=== PATIENT | male | born 1990 | race Hispanic/Latino ===

== ENCOUNTER 2018-04-17 11:37 | Emergency (ER) | payer SELFPAY | END 2018-04-17 13:21 | disposition home or self-care (01) | LOC: ERS 11:37 | DX: B36.0 Pityriasis versicolor (principal); F41.9 Anxiety disorder, unspecified | CPT/HCPCS: 99281 ==

== ENCOUNTER 2018-04-17 22:36 | Inpatient (IN) | payer SELFPAY ==
[2018-04-17 23:01] LABS: Base Excess (BEa) -3.8 mEq/L (0 (+/-) 2.5); O2 Tension (PaO2) 84.9 mmHg (80.0-100.0); pH, Arterial 7.43 (7.35-7.45)
[2018-04-17 23:02] LABS: Analyzer IN Cardio ER; Calcium, Ionized 1.2 mmol/L (1.12-1.30); Hematocrit-ABG 42.3 % (42.0-52.0); Puncture Site RRA
[2018-04-17 23:12] LABS: #Basophils 0.1 thou/uL (0.0-0.2); #Eosinphils 0.2 thou/uL (0.0-0.7); #Lymphocytes 3.1 thou/uL (1.20-3.40); #Monocytes 0.5 thou/uL (0.11-0.59); #Neutrophils 3.7 thou/uL (1.40-6.50); %Basophils 0.7 % (0.0-1.0); %Eosinophils 2.9 % (0.0-10.0); %Lymphocytes 41.6 % (21.0-51.0); %Monocytes 6.2 % (0.0-10.0); %Neutrophils 48.7 % (42.0-75.0); Hemoglobin 14.8 g/dL (14.0-18.0); Mean Corpuscular HGB CONC 34.6 g/dL (32.0-36.0); Mean Corpuscular Hemoglobin 31.3 pg (27.0-31.0); Mean Corpuscular Volume 90.4 fl (80.0-94.0); Mean Platelet Volume 6.3 fL (7.4-10.4); Platelet Count 238 thou/uL (130-400); RBC Distribution Width 11.9 % (11.5-14.5); Red Blood Cell (RBC) Count 4.74 mill/uL (4.70-6.10); White Blood Cell (WBC) Count 7.5 thou/uL (4.8-10.8)
[2018-04-17 23:22] LABS: INR-International Normal Ratio 1.1; PTT 31.3 SEC (22.9-36.1); Prothrombin Time 14.4 SEC (12.0-14.7)
--- NOTE | 2018-04-17 23:30 | RAD ---
PORTABLE CHEST: Date: 04/17/18 PROVIDED CLINICAL HISTORY: Altered mental status. FINDINGS: Comparison with 10/03/17. Cardiac and mediastinal silhouette is within normal limits. Lungs appear clear. There is no pleural f luid or pneumothorax evident. IMPRESSION: No evidence for an acute cardiopulmonary process. POS: [facility]
[2018-04-17 23:34] LABS: ALT (SGPT) 11 U/L (8-55); AST (SGOT) 15 U/L (5-34); Albumin 3.9 g/dL (3.5-5.0); Alkaline Phosphatase 74 U/L (40-150); Anion Gap 13 mmol/L (10-20); BUN (Urea Nitrogen) 10 mg/dL (8.9-20.6); Bilirubin, Total 0.3 mg/dL (0.2-1.2); CK (CPK) 92 U/L (30-200); Calc. Creatinine Clearance 0 mL/min (70-130); Calcium 8.5 mg/dL (7.8-10.44); Carbon Dioxide 20 mmol/L (22-29); Chloride 111 mmol/L (98-107); Estimated GFR-MDRD Greater than 90; Globulin 2.7 g/dL (2.4-3.5); Glucose 93 mg/dL (70-105); Lipase 26 U/L (8-78); Magnesium 2.1 mg/dL (1.6-2.6); Potassium 3.2 mmol/L (3.5-5.1); Protein, Total 6.6 g/dL (6.0-8.3); Sodium 141 mmol/L (136-145)
[2018-04-17 23:35] LABS: Acetaminophen Less than 6.0 mcg/mL (10.0-30.0); Alcohol 23 mg/dL (Less than 10); Salicylate 20.1 mg/dL (15.0-30.0)
[2018-04-17 23:39] LABS: CKMB 1.3 ng/mL (0-6.6); Troponin I Less than 0.010 ng/mL (< 0.028)
[2018-04-18 00:03] LABS: Bilirubin Negative (Negative); Blood, Urine Negative (Negative); Clarity CLEAR (Clear); Glucose, Urine (Dipstick) Negative (Negative); Leukocyte Trace (Negative); Nitrite Negative (Negative); Protein, Urine (Dipstick) Negative (Neg-Trace); Specific Gravity, Urine 1.005 (1.002-1.036); Urobilinogen 0.2 mg/dL (0.2-1.0)
[2018-04-18 00:05] LABS: Bacteria/HPF None Seen HPF (None Seen); Hyaline Casts/LPF 0-3 HYALINE CAST LPF (0-3 Hyaline); RBC/HPF None Seen HPF (0-3); Squamous Epithelial None Seen HPF (0-3); WBC/HPF 0-3 HPF (0-3)
[2018-04-18 00:11] LABS: Amphetamine Not Detected (NotDetected); Barbiturates Screen Not Detected (NotDetected); Benzodiazepine Screen Not Detected (NotDetected); Cocaine Metabolite Screen Not Detected (NotDetected); Medtox Control Line Valid? VALID (VALID); Medtox Reader # READER 1; Methadone Not Detected (NotDetected); Methamphetamine Not Detected (NotDetected); Opiate Screen Not Detected (NotDetected); Oxycodone Screen Not Detected (NotDetected); Phencyclidine (PCP) Not Detected (NotDetected); THC/Cannabinoid Screen Not Detected (NotDetected); Tricyclic Screen Not Detected (NotDetected)
[2018-04-18] MEDS ORDERED: Ondansetron HCl/PF 4 MG/2 ML Vial IVP PRN (02:05)
[2018-04-18 02:53] LABS: #Basophils 0.1 thou/uL (0.0-0.2); #Eosinphils 0.2 thou/uL (0.0-0.7); #Lymphocytes 2.7 thou/uL (1.20-3.40); #Monocytes 0.5 thou/uL (0.11-0.59); %Basophils 0.7 % (0.0-1.0); %Eosinophils 1.9 % (0.0-10.0); %Lymphocytes 32.4 % (21.0-51.0); %Neutrophils 59.1 % (42.0-75.0); Mean Corpuscular HGB CONC 34.7 g/dL (32.0-36.0); Mean Corpuscular Hemoglobin 31.4 pg (27.0-31.0); Mean Corpuscular Volume 90.5 fl (80.0-94.0); Mean Platelet Volume 6.3 fL (7.4-10.4); Platelet Count 252 thou/uL (130-400); RBC Distribution Width 11.8 % (11.5-14.5); Red Blood Cell (RBC) Count 4.78 mill/uL (4.70-6.10); White Blood Cell (WBC) Count 8.4 thou/uL (4.8-10.8)
[2018-04-18 03:06] LABS: Lactic Acid 0.6 mmol/L (0.5-2.2)
[2018-04-18 03:21] LABS: ALT (SGPT) 10 U/L (8-55); AST (SGOT) 14 U/L (5-34); Albumin 3.8 g/dL (3.5-5.0); Alkaline Phosphatase 69 U/L (40-150); Anion Gap 10 mmol/L (10-20); BUN (Urea Nitrogen) 10 mg/dL (8.9-20.6); Bilirubin, Total 0.2 mg/dL (0.2-1.2); Calc. Creatinine Clearance 0 mL/min (70-130); Calcium 8.2 mg/dL (7.8-10.44); Carbon Dioxide 26 mmol/L (22-29); Chloride 109 mmol/L (98-107); Estimated GFR-MDRD Greater than 90; Globulin 2.5 g/dL (2.4-3.5); Glucose 108 mg/dL (70-105); Potassium 3.7 mmol/L (3.5-5.1); Protein, Total 6.3 g/dL (6.0-8.3); Sodium 141 mmol/L (136-145)
--- NOTE | 2018-04-18 05:44 | HP ---
REASON FOR ADMISSION: Aspirin overdose, alcohol intoxication. HISTORY OF PRESENT ILLNESS: The patient states that he had an argument with his ex-girlfriend over his children and got upset. He started taking aspirin from a full bottle with him drinking 8 cans of beer. He states he emptied the whole bottle chew them all up. The patient has epigastric pain right now, so he feels nauseous and has not really vomited anything so far. He did this to end his life. No complaints of palpitations, PND, or orthopnea. PAST MEDICAL AND SURGICAL HISTORY: Tinea versicolor. CURRENT MEDICATIONS: None. ALLERGIES: No known drug allergies. PERSONAL HISTORY: Usually drinks on social occasions, but drank 8 beers to take his full bottle of aspirin with suicidal intention today. Does not smoke. Denies substance abuse. He lives alone, has 3 boys, 7 years, 4 years, 2 years. He is from his live-in girlfriend. FAMILY HISTORY: Mother has history of coronary artery disease and lives in [place]. Father is living with him and is healthy. REVIEW OF SYSTEMS: The following complete review of systems was negative, unless otherwise mentioned in the HPI or below: Constitutional: Weight loss or gain, ability to conduct usual activities. Skin: Rash, itching. Eyes: Double vision, pain. ENT/Mouth: Nose bleeding, neck stiffness, pain, tenderness. Cardiovascular: Palpitations, dyspnea on exertion, orthopnea. Respiratory: Shortness of breath, wheezing, cough, hemoptysis, fever or night sweats. Gastrointestinal: Poor appetite, abdominal pain, heartburn, nausea, vomiting, constipation, or diarrhea. Genitourinary: Urgency, frequency, dysuria, nocturia. Musculoskeletal: Pain, swelling. Neurologic/Psychiatric: Anxiety, depression. Allergy/Immunologic: Skin rash, bleeding tendency. PHYSICAL EXAMINATION: GENERAL: The patient is a 27-year-old male who is in mild distress from epigastric pain. VITAL SIGNS: Blood pressure 124/70, pulse 56 per minute, respiratory rate 20 per minute, temperature 97.6 degrees Fahrenheit, saturating 98% on room air. NECK: Supple, no elevated JVD. HEENT: Eyes: Extraocular muscles intact. Pupils reacting to light. Oral cavity: Mucous membranes are dry. No exudates or congestion. CARDIOVASCULAR SYSTEM: S1, S2 heard. Regular rhythm. RESPIRATORY SYSTEM: Air entry 1+ bilateral. No rales or rhonchi. ABDOMEN: Soft, bowel sounds heard. Mild tenderness in the epigastric area. No rigidity or guarding. Bowel sounds are heard. EXTREMITIES: No peripheral edema or calf tenderness. VASCULAR SYSTEM: Peripheral pulses 2+ bilateral, no ischemic ulcerations or gangrene. CENTRAL NERVOUS SYSTEM: No gross focal deficits seen. The patient is awake and oriented well. PSYCHIATRIC SYSTEM: The patient is a bit anxious, otherwise no hallucinations or delusions. LABORATORY DATA AND X-RAY FINDINGS: Salicylic acid level was 20.1. Plasma alcohol level is 23. Acetaminophen level is less than 6. Urine drug screen is negative. Chest x-ray, no acute cardiopulmonary abnormalities. TSH 3.0, lipase 26. Lactic acid 2.5, serum bicarbonate 20, potassium 3.2, BUN 10, creatinine 0.7, glucose is 93. Liver enzymes are all within normal limits. First set of cardiac enzymes are negative. Albumin is 3.9. Blood gas done shows a pH of 7.43, pCO2 of 29, pO2 84, bicarb on the blood gas is 19. PT, INR , PTT within normal limits. White count of 7, H&H 14 and 42, platelet count 238 , MCV is 90 with 48% neutrophils. EKG done shows sinus bradycardia at 51 beats per minute, no gross ST-T wave changes. CLINICAL IMPRESSION AND PLAN: The patient will be admitted to ICU for overdose on aspirin with suicidal intention along with alcohol intoxication. Dr. Gtz had called [facility] and was asked to place him on bicarbonate drip. No activated charcoal or lavage was done. We will obtain salicylate levels every 6 hours. We will closely monitor his serum bicarbonate and renal function as well. We will continue his bicarbonate drip. We will closely monitor him for possible acidosis. We will check liver function panel in the morning. He will be on Protonix 40 mg IV q.12 hourly as well. MTDD
[2018-04-18 06:16] LABS: ALT (SGPT) 11 U/L (8-55); AST (SGOT) 15 U/L (5-34); Albumin 3.7 g/dL (3.5-5.0); Alkaline Phosphatase 68 U/L (40-150); Anion Gap 9 mmol/L (10-20); BUN (Urea Nitrogen) 10 mg/dL (8.9-20.6); Bilirubin, Total 0.2 mg/dL (0.2-1.2); Calc. Creatinine Clearance 0 mL/min (70-130); Carbon Dioxide 26 mmol/L (22-29); Chloride 109 mmol/L (98-107); Estimated GFR-MDRD Greater than 90; Globulin 2.5 g/dL (2.4-3.5); Glucose 103 mg/dL (70-105); Potassium 3.7 mmol/L (3.5-5.1); Protein, Total 6.2 g/dL (6.0-8.3); Sodium 140 mmol/L (136-145)
[2018-04-18 06:18] LABS: Salicylate 31.2 mg/dL (15.0-30.0)
[2018-04-18 08:22] LABS: Bilirubin Negative (Negative); Blood, Urine Negative (Negative); Clarity CLEAR (Clear); Glucose, Urine (Dipstick) Negative (Negative); Leukocyte Negative (Negative); Nitrite Negative (Negative); Protein, Urine (Dipstick) Negative (Neg-Trace); Specific Gravity, Urine 1.011 (1.002-1.036); Urobilinogen 0.2 mg/dL (0.2-1.0); pH, Urine 7.5 (5.0-9.0)
[2018-04-18] MEDS ORDERED: Enoxaparin Sodium 40 MG/0.4 ML SYRINGE SC SCH (09:00)
[2018-04-18] MEDS ORDERED: Pantoprazole 40 MG VIAL ONE (11:41)
[2018-04-18] MEDS: SODIUM BICARBONATE IV SCH ×3 (15:59→21:21)
[2018-04-18] MEDS: [UNRECOGNIZED DRUG - OTHER] IV SCH ×3 (15:59→21:21)
[2018-04-18] MEDS: POTASSIUM CHLORIDE IV SCH ×3 (15:59→21:21)
[2018-04-18] MEDS: ADMIXTURE FEE IV SCH ×3 (15:59→21:21)
[2018-04-18] MEDS: Sodium Bicarbonate 150 MEQ in Dextrose 5% w/ 20 mEq KCl 1,000 ML IVP SCH ×2 (15:59→21:16)
[2018-04-18 17:58] LABS: ALT (SGPT) 16 U/L (8-55); AST (SGOT) 14 U/L (5-34); Albumin 3.5 g/dL (3.5-5.0); Alkaline Phosphatase 61 U/L (40-150); Anion Gap 8 mmol/L (10-20); BUN (Urea Nitrogen) 10 mg/dL (8.9-20.6); Bilirubin, Total 0.4 mg/dL (0.2-1.2); Calc. Creatinine Clearance 0 mL/min (70-130); Calcium 8.1 mg/dL (7.8-10.44); Carbon Dioxide 27 mmol/L (22-29); Chloride 107 mmol/L (98-107); Estimated GFR-MDRD 87; Globulin 2.4 g/dL (2.4-3.5); Glucose 100 mg/dL (70-105); Potassium 3.2 mmol/L (3.5-5.1); Protein, Total 5.9 g/dL (6.0-8.3); Sodium 139 mmol/L (136-145)
[2018-04-18 18:08] VITALS: BMI 24.8
[2018-04-18] MEDS: Pantoprazole 40 MG VIAL IVP SCH ×2 (18:19→21:21)
[2018-04-18 21:17] LABS: ALT (SGPT) 16 U/L (8-55); AST (SGOT) 13 U/L (5-34); Albumin 3.4 g/dL (3.5-5.0); Alkaline Phosphatase 58 U/L (40-150); Anion Gap 9 mmol/L (10-20); BUN (Urea Nitrogen) 11 mg/dL (8.9-20.6); Bilirubin, Total 0.5 mg/dL (0.2-1.2); Calc. Creatinine Clearance 92 mL/min (70-130); Calcium 8.3 mg/dL (7.8-10.44); Carbon Dioxide 26 mmol/L (22-29); Chloride 108 mmol/L (98-107); Estimated GFR-MDRD 74; Globulin 2.3 g/dL (2.4-3.5); Glucose 113 mg/dL (70-105); Potassium 3.7 mmol/L (3.5-5.1); Protein, Total 5.7 g/dL (6.0-8.3); Salicylate 10.7 mg/dL (15.0-30.0); Sodium 139 mmol/L (136-145)
[2018-04-18 22:12] LABS: Chlamydia by PCR DETECTED (NotDetected); GC by PCR Not Detected (NotDetected)
[2018-04-19 01:15] LABS: ALT (SGPT) 15 U/L (8-55); AST (SGOT) 12 U/L (5-34); Albumin 3.3 g/dL (3.5-5.0); Alkaline Phosphatase 56 U/L (40-150); Anion Gap 8 mmol/L (10-20); BUN (Urea Nitrogen) 12 mg/dL (8.9-20.6); Bilirubin, Total 0.6 mg/dL (0.2-1.2); Calc. Creatinine Clearance 94 mL/min (70-130); Calcium 8.1 mg/dL (7.8-10.44); Carbon Dioxide 28 mmol/L (22-29); Chloride 106 mmol/L (98-107); Estimated GFR-MDRD 76; Globulin 2.2 g/dL (2.4-3.5); Glucose 114 mg/dL (70-105); Potassium 3.3 mmol/L (3.5-5.1); Protein, Total 5.5 g/dL (6.0-8.3); Sodium 139 mmol/L (136-145)
[2018-04-19] MEDS: [UNRECOGNIZED DRUG - OTHER] IV SCH ×3 (03:31→10:09)
[2018-04-19] MEDS: POTASSIUM CHLORIDE IV SCH ×3 (03:31→10:09)
[2018-04-19] MEDS: SODIUM BICARBONATE IV SCH ×3 (03:31→10:09)
[2018-04-19] MEDS: ADMIXTURE FEE IV SCH ×3 (03:31→10:09)
[2018-04-19] MEDS: Pantoprazole 40 MG VIAL IVP SCH ×2 (08:23→20:52)
[2018-04-19] MEDS ORDERED: Potassium Chloride 20 MEQ TAB PO SCH (10:00)
[2018-04-19] MEDS ORDERED: Azithromycin 250 MG TAB PO SCH (10:30)
[2018-04-19 11:18] LABS: HIV (1/2) Antibody/Antigen Non-Reactive (NonReactive); HIV 1/2 INDEX 0.14 S/CO (<1.00)
--- NOTE | 2018-04-19 16:02 | PDOC.PN ---
- Subjective Encounter Start Date: 04/19/18 Encounter Start Time: 11:40 Pt seen for followup re: aspirin overdose. Denies chest pain, shortness of breath, fevers or chills. No nausea or vomiting. - Objective Resuscitation Status: Resuscitation Status FULL:Full Resuscitation Vital Signs & Weight: Vital Signs (12 hours) Temp Pulse Resp BP Pulse Ox 04/19/18 15:47 97.4 F L 58 L 16 111/56 L 98 04/19/18 11:23 98.3 F 51 L 15 100/61 99 04/19/18 08:18 98.0 F 62 17 111/62 100 Weight Weight 154 lb I&O: 04/18/18 04/19/18 04/20/18 06:59 06:59 06:59 Intake Total 1271 Output Total 680 Balance 591 Result Diagrams: 04/18/18 02:43 04/19/18 00:46 Phys Exam - Physical Examination Constitutional: NAD HEENT: moist MMs, sclera anicteric, oral pharynx no lesions, 2+ tonsils Neck: no nodes, no JVD, supple, full ROM Respiratory: no wheezing, no rales, no rhonchi, clear to auscultation bilateral Cardiovascular: RRR, no rub S1, S2 Gastrointestinal: soft, non-tender, no distention, positive bowel sounds Neurological: moves all 4 limbs Psychiatric: normal affect, A&O x 3 Deviation from normal: tinea versicolor Dx/Plan (1) Intentional aspirin overdose Code(s): T39.012A - POISONING BY ASPIRIN, INTENTIONAL SELF-HARM, INIT ENCNTR Status: Acute Comment: Poison control recommendations carried out, aspirin level is low now. (2) Chlamydia infection Code(s): A74.9 - CHLAMYDIAL INFECTION, UNSPECIFIED Status: Acute Comment: Azithromycin 1 gm PO x 1, pt has been counseled to abstain from sex for at least 7 days. Also counseled re; safe sex practices. HIV screen negative. (3) Hypokalemia Code(s): E87.6 - HYPOKALEMIA Status: Acute Comment: replace potassium (4) Tinea versicolor Status: Chronic - Plan * . Further disposition depending on [facility] eval. Review of Systems - Review of Systems Constitutional: negative: fever, chills, sweats, weakness, malaise Respiratory: negative: Cough, Shortness of Breath, SOB with Excertion, Pleuritic Pain, Wheezing Cardiovascular: negative: chest pain, palpitations, orthopnea, paroxysmal nocturnal dyspnea, edema, light headedness Gastrointestinal: negative: Nausea, Vomiting, Abdominal Pain, Diarrhea, Constipation, Melena, Hematochezia Genitourinary: negative: Dysuria, Frequency, Incontinence, Hematuria, Retention Skin: negative: Rash, Lesions, Eddie, Bruising - Medications/Allergies Allergies/Adverse Reactions: Allergies Allergy/AdvReac Type Severity Reaction Status Date / Time No Known Allergies Allergy Unverified 04/17/18 23:09 Medications: Current Medications Pantoprazole Sodium (Protonix) 40 mg IVP Q12HR [facility] Last Admin: 04/19/18 08:23 Dose: 40 mg Sodium Chloride (Flush - Normal Saline) 10 ml IVF Q12HR [facility] Last Admin: 04/19/18 08:23 Dose: 10 ml Sodium Chloride (Flush - Normal Saline) 10 ml IVF PRN PRN PRN Reason: Saline Flush
--- NOTE | 2018-04-20 01:03 | DIS ---
DATE OF ADMISSION: 04/18/2018 DATE OF DISCHARGE: 04/19/2018 PRIMARY CARE PROVIDER: None. DISCHARGE DIAGNOSES: 1. Intentional aspirin overdose. 2. Chlamydia genital tract infection. 3. Hypokalemia. CONDITION OF THE PATIENT ON THE DAY OF DISCHARGE: Stable. I assessed Mr. Sparrow on the day of disch argcecily. Please refer to my daily hospitalist progress note for further details regarding this [id number] en counter. DISCHARGE MEDICATIONS: None. HOSPITAL COURSE: Mr. Sparrow is a pleasant 27-year-old gentleman who was admitted to [facility] on 04/18/2018 for intentional aspirin overdose. He was treated with a bicarbonate drip. Aspirin levels initially trended up, subsequently trended down into the normal range. He was also hypokalemic and received potassium supplement. Emergency room physician sent out chlamydia and gonococcal serology. The patient was positive for ch lamydia DNA. Neisseria gonorrhoeae DNA was not detected. The patient was provided education regardi ng sexually transmitted infections. He received azithromycin 1 g, one-time dose. I also checked his HIV 1 and 2 antigen and antibody. The test was nonreactive. He has been advised to abstain from sex for at least 7 days and to follow up with his primary care pr ovider for further management. At the time of this dictation, [facility] is evaluating the patient as to discharge disposition. DISCHARGE DESTINATION: Likely home. TOTAL AMOUNT OF TIME SPENT COORDINATING THIS DISCHARGE: 33 minutes.
[2018-04-20] MEDS: Pantoprazole 40 MG VIAL IVP SCH (08:23)
[2018-04-20 11:21] LABS: Syphilis Antibody Nonreactive (Nonreactive); Syphilis Antibody Index 0.05 S/CO (<1.00 Non-Reactive)
[2018-04-20 15:15] VITALS: BP 117/78; TEMP 98.2
--- NOTE | 2018-04-21 01:03 | DIS ---
PRIMARY CARE PROVIDER: None. DATE OF ADMISSION: 04/18/2018 DATE OF DISCHARGE: 04/20/2018 DISCHARGE DIAGNOSES: 1. Intentional aspirin overdose. 2. Chlamydia genital tract infection. 3. Hypokalemia. CONDITION OF PATIENT ON THE DAY OF DISCHARGE: Stable. I assessed Mr. Sparrow on the day of discharge . He denies any chest pain or shortness of breath. Vital signs are stable. S1 and S2 are heard, re gular. Lungs are clear to auscultation bilaterally. DISCHARGE MEDICATIONS: None. HOSPITAL COURSE: Mr. Sparrow is a pleasant 27-year-old gentleman, who was admitted to [facility] on 04/18/2018 for intentional aspirin overdose. Aspirin levels initially trended up, subsequently normalized after treatment with bicarbonate drip. He received potassium supplements for hypokalemia. He had positive chlamydia serology, negative gonococcal serology, negative syphilis serology and nega tive HIV 1 and 2 serology. He received azithromycin 1 gram, one-time dose. He has been advised to a bstain from sex for 1 week. He has also been advised to notify his sexual partner regarding his chla mydia positive test. [facility] evaluated the patient after he was medically cleared. He has been cleared to go home. DISCHARGE DESTINATION: Home. TOTAL AMOUNT OF TIME SPENT COORDINATING THIS DISCHARGE: Thirty three minutes.
== END 2018-04-20 17:37 | disposition home or self-care (01) | DRG 918 ==
LOC: ERS 22:36 → ERHOLD 04-18 01:16 → 2NO 04-18 15:22
PROVIDERS: ADMIT Internal Medicine; ATTEND Internal Medicine
DX: T39.012A Poisoning by aspirin, intentional self-harm, initial encounter (principal); Y92.099 Unspecified place in other non-institutional residence as the place of occurrence of the external cause; F10.129 Alcohol abuse with intoxication, unspecified; A74.9 Chlamydial infection, unspecified; B36.0 Pityriasis versicolor; E87.6 Hypokalemia
CPT/HCPCS: 36415; 71045; 80053; 80306; 80307; 81003; 81015; 82553; 82805; 83605; 83690; 83735; 84443; 84484; 85025; 85610; 85730; 86780; 87389; 87491; 87591; 93005; 96365; 96366; 96375; A4216; C9113; J2405; J7070

== ENCOUNTER 2018-05-31 12:07 | Emergency (ER) | payer SELFPAY ==
[2018-05-31] MEDS ORDERED: Ketorolac Tromethamine 60 MG/2 ML VIAL ONE (13:14)
[2018-05-31 13:23] LABS: #Eosinphils 0.1 thou/uL (0.0-0.7); #Lymphocytes 1.7 thou/uL (1.20-3.40); #Monocytes 0.5 thou/uL (0.11-0.59); #Neutrophils 4.7 thou/uL (1.40-6.50); %Basophils 0.2 % (0.0-1.0); %Eosinophils 0.9 % (0.0-10.0); %Lymphocytes 24.1 % (21.0-51.0); %Monocytes 6.6 % (0.0-10.0); %Neutrophils 68.2 % (42.0-75.0); Hemoglobin 15.2 g/dL (14.0-18.0); Mean Corpuscular HGB CONC 33.7 g/dL (32.0-36.0); Mean Corpuscular Hemoglobin 30.1 pg (27.0-31.0); Mean Corpuscular Volume 89.3 fL (78.0-98.0); Mean Platelet Volume 5.9 fL (7.4-10.4); Platelet Count 255 thou/uL (130-400); RBC Distribution Width 11.9 % (11.5-14.5); Red Blood Cell (RBC) Count 5.06 mill/uL (4.70-6.10); White Blood Cell (WBC) Count 6.9 thou/uL (4.8-10.8)
[2018-05-31 13:43] LABS: ALT (SGPT) 12 U/L (8-55); AST (SGOT) 14 U/L (5-34); Albumin 4.1 g/dL (3.5-5.0); Alkaline Phosphatase 68 U/L (40-150); Anion Gap 10 mmol/L (10-20); BUN (Urea Nitrogen) 11 mg/dL (8.9-20.6); Bilirubin, Total 0.8 mg/dL (0.2-1.2); Calc. Creatinine Clearance 0 mL/min (70-130); Calcium 9.3 mg/dL (7.8-10.44); Carbon Dioxide 26 mmol/L (22-29); Chloride 106 mmol/L (98-107); Estimated GFR-MDRD Greater than 90; Globulin 2.6 g/dL (2.4-3.5); Glucose 92 mg/dL (70-105); Potassium 4.1 mmol/L (3.5-5.1); Protein, Total 6.7 g/dL (6.0-8.3); Sodium 138 mmol/L (136-145)
[2018-05-31 13:46] LABS: CKMB 1.2 ng/mL (0-6.6); Troponin I Less than 0.010 ng/mL (< 0.028)
--- NOTE | 2018-05-31 14:02 | RAD ---
PA AND LATERAL VIEWS OF CHEST: Date: 05/31/18 HISTORY: Left-sided chest pain. FINDINGS: The heart size is normal. The lungs are well expanded without focal areas of consolidation, pneumotho races, chanel pulmonary edema, or pleural effusions. No acute osseous abnormalities are seen. IMPRESSION: No radiographic evidence of acute cardiopulmonary process. POS: [facility]
--- NOTE | 2018-06-03 14:24 | EKG ---
Test Reason : Blood Pressure : / mmHG Vent. Rate : 063 BPM Atrial Rate : 063 BPM P-R Int : 100 ms QRS Dur : 102 ms QT Int : 410 ms P-R-T Axes : 075 084 062 degrees QTc Int : 419 ms Sinus rhythm with short IN Otherwise normal ECG Confirmed by JUAN JOSE DUARTE ([id number]), television news video editor DEBRA CDOY ([id number]) on 06/03/2018 2:23:44 PM Referred By: Confirmed By:JUAN JOSE DUARTE
== END 2018-05-31 14:15 | disposition home or self-care (01) ==
LOC: ERS 12:07
DX: S29.011A Strain of muscle and tendon of front wall of thorax, initial encounter (principal); F41.9 Anxiety disorder, unspecified; X58.XXXA Exposure to other specified factors, initial encounter
CPT/HCPCS: 36415; 71046; 80053; 82553; 84484; 85025; 93005; 96372; J1885

== ENCOUNTER 2018-06-07 11:23 | Emergency (ER) | payer SELFPAY ==
--- NOTE | 2018-06-07 12:00 | RAD ---
PA AND LATERAL CHEST: Date: 06/07/18 INDICATION: Chest pain. COMPARISON: Prior exam dated 0 05/31/18. IMPRESSION: No acute cardiopulmonary abnormality. The examination [facility]: [facility]
[2018-06-07 12:22] LABS: #Basophils 0.1 thou/uL (0.0-0.2); #Eosinphils 0.1 thou/uL (0.0-0.7); #Lymphocytes 1.7 thou/uL (1.20-3.40); #Monocytes 0.5 thou/uL (0.11-0.59); #Neutrophils 4.4 thou/uL (1.40-6.50); %Eosinophils 1.5 % (0.0-10.0); %Lymphocytes 25.5 % (21.0-51.0); %Monocytes 6.8 % (0.0-10.0); %Neutrophils 65.2 % (42.0-75.0); Hemoglobin 14.8 g/dL (14.0-18.0); Mean Corpuscular HGB CONC 34.8 g/dL (32.0-36.0); Mean Corpuscular Hemoglobin 29.6 pg (27.0-31.0); Mean Corpuscular Volume 85.2 fL (78.0-98.0); Mean Platelet Volume 6.7 fL (7.4-10.4); Platelet Count 239 thou/uL (130-400); RBC Distribution Width 10.6 % (11.5-14.5); Red Blood Cell (RBC) Count 5.01 mill/uL (4.70-6.10); White Blood Cell (WBC) Count 6.7 thou/uL (4.8-10.8)
[2018-06-07] MEDS ORDERED: Ketorolac Tromethamine 60 MG/2 ML VIAL ONE (12:27)
[2018-06-07 12:30] LABS: ALT (SGPT) 10 U/L (8-55); AST (SGOT) 14 U/L (5-34); Albumin 4.1 g/dL (3.5-5.0); Alkaline Phosphatase 68 U/L (40-150); Anion Gap 9 mmol/L (10-20); BUN (Urea Nitrogen) 13 mg/dL (8.9-20.6); Bilirubin, Total 0.7 mg/dL (0.2-1.2); Calc. Creatinine Clearance 0 mL/min (70-130); Carbon Dioxide 26 mmol/L (22-29); Chloride 110 mmol/L (98-107); Estimated GFR-MDRD Greater than 90; Globulin 2.5 g/dL (2.4-3.5); Glucose 85 mg/dL (70-105); Potassium 4.3 mmol/L (3.5-5.1); Protein, Total 6.6 g/dL (6.0-8.3); Sodium 141 mmol/L (136-145)
[2018-06-07 12:33] LABS: CKMB 1.2 ng/mL (0-6.6); Troponin I Less than 0.010 ng/mL (< 0.028)
== END 2018-06-07 12:55 | disposition home or self-care (01) ==
LOC: SCSER 11:23
DX: R07.89 Other chest pain (principal); F41.9 Anxiety disorder, unspecified
CPT/HCPCS: 36415; 71046; 80053; 82553; 84484; 85025; 93005; 96372; J1885

== ENCOUNTER 2018-06-11 18:17 | Emergency (ER) | payer SELFPAY ==
[2018-06-11] MEDS ORDERED: Ketorolac Tromethamine 30 MG/ML VIAL ONE (20:03)
== END 2018-06-11 20:21 | disposition home or self-care (01) ==
LOC: ERS 18:17
DX: R07.89 Other chest pain (principal); F41.9 Anxiety disorder, unspecified; F32.9 Major depressive disorder, single episode, unspecified
CPT/HCPCS: 96372; J1885